=== PATIENT | male | born 2000 | race Hispanic/Latino ===

== ENCOUNTER 2024-07-17 06:43 | Emergency (ER) | payer MEDICAID ==
[~2024-07-17] VITALS: Ht 175.3 cm; Wt 54.4 kg
[2024-07-17] MEDS: LACTATED RINGERS 1000ML 1,000 ML IV ONE (07:24)
--- NOTE | 2024-07-17 07:27 | ERN ---
General Chief Complaint: Altered Mental Status Stated Complaint: AMS Time Seen by MD: 06:55 History of Present Illness Initial Comments 24-year-old male with no significant past medical history presents today with altered mental status. Patient apparently was found outside a " [employer]" store. Patient appears to be nonverbal. Allergies: Coded Allergies: No Known Drug Allergies (Unverified Allergy, Unknown, 07/17/24) Past Medical History Past Medical History: Unknown Past Surgical History: Unknown ROS Dictation Twelve point review of systems can not be done given patient's altered mental status Physical Exam Physical Exam Dictation General: Altered responds to commands Head/Face: Normocephalic, atraumatic Eyes: PERRL, ENT: oral cavity clear, Neck: Trachea midline, supple Cardiovascular: RRR, normal S1/S2 Respiratory: CTAB, no respiratory distress Abdomen: Soft, non-tender, non-distended, Skin: Warm, dry, normal turgor, no rash MS/Extremity: Pulses equal, Neuro: COAx4, GCS 15, strength 5/5 Results Laboratory and Microbiology Lab and Micro Result Laboratory Tests Test 07/17/24 07:20 07/17/24 07:49 07/17/24 10:05 07/17/24 11:19 White Blood Count 13.2 K/uL (4.8-10.8) H Red Blood Count 5.55 MIL/uL (4.50-6.20) Hemoglobin 16.0 g/dL (14.0-18.0) Hematocrit 45.9 % (42-54) Mean Corpuscular Volume 82.7 fL (79-99) Mean Corpuscular Hemoglobin 28.8 pg (27.0-33.0) Mean Corpuscular Hemoglobin Concent 34.9 g/dL (32.0-36.0) Red Cell Distribution Width 12.5 % (11.0-15.5) Platelet Count 384 K/uL (130-400) Mean Platelet Volume 9.7 fL (7.5-10.5) Immature Granulocyte % (Auto) 0.4 % (0-1) Neutrophils (%) (Auto) 83.2 % (40.0-77.0) H Lymphocytes (%) (Auto) 8.5 % (21.0-51.0) L Monocytes (%) (Auto) 7.6 % (3.0-13.0) Eosinophils (%) (Auto) 0.0 % (0.0-8.0) Basophils (%) (Auto) 0.3 % (0.0-5.0) Neutrophils # (Auto) 11.0 K/uL (1.8-7.7) H Lymphocytes # (Auto) 1.1 K/uL (1.0-4.8) Monocytes # (Auto) 1.0 K/uL (0.1-1.0) Eosinophils # (Auto) 0.00 K/uL (0.00-0.70) Basophils # (Auto) 0.04 K/uL (0.00-0.20) Absolute Immature Granulocyte (auto 0.05 K/uL (0-1) Nucleated Red Blood Cells 0.0 % (0.0-0.19) White Cell Morphology Comment See comments Sodium Level 142 mmol/L (136-145) Potassium Level 4.7 mmol/L (3.5-5.1) Chloride Level 102 mmol/L (101-111) Carbon Dioxide Level 24 mmol/L (21-32) Blood Urea Nitrogen 19 mg/dL (7-18) H Creatinine 1.7 mg/dL (0.5-1.3) H Glomerular Filtration Rate Calc 58 mL/min (>90) Random Glucose 80 mg/dL (70-105) Whole Blood Ketones Quantitative 6.5 mmol/L (0.0-0.6) H Total Calcium 9.8 mg/dL (8.5-10.1) Total Bilirubin 1.1 mg/dL (0.2-1.0) H Aspartate Amino Transf (AST/SGOT) 35 U/L (10-37) Alanine Aminotransferase (ALT/SGPT) 25 U/L (12-78) Alkaline Phosphatase 94 U/L (50-136) Total Creatine Kinase 595 U/L (21-232) *H 536 U/L (21-232) *H Total Protein 7.6 g/dL (6.0-8.3) Albumin 4.3 g/dL (3.5-5.0) Lipase 17 U/L (16-77) Urine Color YELLOW (YELLOW) Urine Appearance CLEAR (CLEAR) Urine pH 6.0 (5.0-8.0) Urine Specific Decker 1.023 (1.001-1.031) Urine Protein 100 mg/dL (NEGATIVE) H Urine Glucose (UA) NEGATIVE mg/dL (NEGATIVE) Urine Ketones 150 mg/dL (NEGATIVE) H Urine Occult Blood +- (TRACE) (NEGATIVE) H Urine Nitrate NEGATIVE (NEGATIVE) Urine Bilirubin NEGATIVE mg/dL (NEGATIVE) Urine Urobilinogen 3 mg/dL (0.2-1.0) H Urine Leukocyte Esterase NEGATIVE Bryn/uL Urine RBC 2-5 /HPF (0-1) H Urine WBC 6-10 /HPF (0-1) H Urine Squamous Epithelial Cells RARE /HPF (0-2) Urine Bacteria FEW /HPF (None Seen) Urine Hyaline Casts 26-50 /LPF (0-1 /LPF) H Urine Granular Casts (Auto) 6-10 /LPF (None Seen) H Urine Other Casts 4 /LPF (None Seen) Urine Opiates Screen NEGATIVE (NEGATIVE) Urine Barbiturates Screen NEGATIVE (NEGATIVE) Urine Phencyclidine Screen NEGATIVE (NEGATIVE) Urine Amphetamines Screen NEGATIVE (NEGATIVE) Urine Benzodiazepines Screen NEGATIVE (NEGATIVE) Urine Cocaine Screen NEGATIVE (NEGATIVE) Urine Marijuana (THC) Screen NEGATIVE (NEGATIVE) Serum Alcohol < 3 mg/dL (0-10) MDM MDM: Differential diagnosis: Worsening psychiatric illness, Rationale: Tests considered and ordered secondary to shared decision making include: Previous outside records reviewed: Old ER visits. Risk of complication and/or morbidity or mortality of patient management: None Medications-Per medication reconciliation Need for hospitalization: Patient does meet criteria for hospitalization. Need for emergency major/minor surgery: No There are no social concerns with this patient. Prescription drug management Prescriptions will include symptomatic care Patient's prior external medical records from other ER visits were reviewed by me as indicated. Prior testing and results from previous visits were reviewed. Prior tests were taken into account with medical decision making and resource utilization, independent historian/historians were used to obtain complete medical history. I independently interpreted the test that were performed, results were reviewed by me and considered findings on radiology if ordered. Medical management and examination interpretation discussions were had by me with other qualified healthcare professionals as indicated for the patient's care. Patient will be transferred to [facility] for ongoing management of acute on chronic psychiatric illness. [facility] Orders Procedure Category Date Status Time Cbc With Differential LAB 07/17/24 Complete 06:49 Comprehensive LAB 07/17/24 Complete Metabolic Panel 06:49 Urinalysis Profile LAB 07/17/24 Complete 06:49 Lactated Ringers PHA 07/17/24 Complete 1000ml (Lactated 07:00 Lipase LAB 07/17/24 Complete 06:49 Drug Screen Urine LAB 07/17/24 Complete 06:49 Ketone Blood LAB 07/17/24 Complete Quantitative 06:49 Culture Urine MELA 07/17/24 Logged 08:18 Creatine Kinase, Total LAB 07/17/24 Complete 08:46 Alcohol, Blood LAB 07/17/24 Complete 09:53 0.9%Nacl 1000ml (Ns PHA 07/17/24 Complete 1000ml) 10:30 Creatine Kinase, Total LAB 07/17/24 Complete 11:11 Dexamethasone 4mg/Ml PHA 07/17/24 Complete 1ml Vial (Dexametha 12:00 0.9%Nacl 1000ml (Ns PHA 07/17/24 Complete 1000ml) 12:30 Current Medications Medications (Trade) Dose Ordered Sig/Kristie Route PRN Reason Start Time Stop Time Status Last Admin Dose Admin Dexamethasone Sodium Phosphate (dexaMETHasone 4MG/ML 1ML VIAL) 8 mg Q24H IV 07/17/24 12:00 07/17/24 12:01 DC Lactated Ringer's 1,000 ml @ 0 mls/hr ONCE ONCE IV 07/17/24 07:00 07/17/24 07:01 DC 07/17/24 07:24 Sodium Chloride 1,000 ml @ 0 mls/hr ONCE ONCE IV 07/17/24 10:30 07/17/24 10:31 DC 07/17/24 10:28 Sodium Chloride 1,000 ml @ 0 mls/hr ONCE ONCE IV 07/17/24 12:30 07/17/24 12:31 DC 07/17/24 13:21 Vital Signs Date Time Temp Pulse Resp B/P (MAP) Pulse Ox O2 Delivery O2 Flow Rate FiO2 07/17/24 14:27 98.4 99 16 112/60 100 Room Air* 0 07/17/24 13:23 98.4 99 16 112/60 100 Room Air* 0 07/17/24 07:09 98.4 99 16 111/67 99 Room Air* 0 07/17/24 06:51 98.4 104 16 132/73 100 Room Air* 0 07/17/24 06:45 99.0 114 16 124/70 100 Room Air 0 DX & DISP Disposition: Transfer Decision to Admit Time: 14:43 Departure Impression: Primary Impression: Psychiatric illness Condition: Stable Referrals: SELF,REFERRAL (PCP) MARK ALVARADO MD Jul 17, 2024 07:27 REJI STANFORD MD Jul 17, 2024 14:43
[2024-07-17 07:29] LABS: BASOPHILS # (AUTO) 0.04 K/uL (0.00-0.20); BASOPHILS % (AUTO) 0.3 % (0.0-5.0); HEMATOCRIT 45.9 % (42-54); IMMATURE GRANULOCYTE ABSOLUTE 0.05 K/uL (0-1); LYMPHOCYTES # (AUTO) 1.1 K/uL (1.0-4.8); LYMPHOCYTES % (AUTO) 8.5 % (21.0-51.0); MEAN CORPUSCULAR HEMOGLOBIN 28.8 pg (27.0-33.0); MEAN CORPUSCULAR HGB CONC 34.9 g/dL (32.0-36.0); MEAN CORPUSCULAR VOLUME 82.7 fL (79-99); MONOCYTES % (AUTO) 7.6 % (3.0-13.0); NEUTROPHILS % (AUTO) 83.2 % (40.0-77.0); PLATELET COUNT (AUTO) 384 K/uL (130-400); RED BLOOD CELL COUNT(AUTO) 5.55 MIL/uL (4.50-6.20); RED CELL DISTRIBUTION WIDTH 12.5 % (11.0-15.5); WHITE BLOOD COUNT (AUTO) 13.2 K/uL (4.8-10.8)
[2024-07-17 07:42] LABS: ALBUMIN 4.3 g/dL (3.5-5.0); BILIRUBIN,TOTAL 1.1 mg/dL (0.2-1.0); CREATININE 1.7 mg/dL (0.5-1.3); POTASSIUM 4.7 mmol/L (3.5-5.1); TOTAL PROTEIN, SERUM 7.6 g/dL (6.0-8.3)
[2024-07-17 08:13] LABS: APPEARANCE,URINE CLEAR (CLEAR); BILIRUBIN,URINE NEGATIVE (NEGATIVE); COLOR,URINE YELLOW (YELLOW); GLUCOSE, URINE (UA) NEGATIVE (NEGATIVE); KETONES,URINE 150 mg/dL (NEGATIVE); LEUKOCYTE ESTERASE ,URINE NEGATIVE Leu/uL (NEGATIVE); NITRATE,URINE NEGATIVE (NEGATIVE); PROTEIN,URINE 100 mg/dL (NEGATIVE); UROBILINOGEN,URINE 3 mg/dL (0.2-1.0)
[2024-07-17 08:15] LABS: ADD UA MICROSCOPIC YES
[2024-07-17 08:17] LABS: AMPHET/METH SCREEN,URINE NEGATIVE (NEGATIVE); BARBITURATE SCREEN, URINE NEGATIVE (NEGATIVE); BENZODIAZEPINES SCREEN,URINE NEGATIVE (NEGATIVE); CANNABINOID SCREEN,URINE NEGATIVE (NEGATIVE); COCAINE SCREEN,URINE NEGATIVE (NEGATIVE); OPIATE SCREEN,URINE NEGATIVE (NEGATIVE); PHENCYCLIDINE SCREEN,URINE NEGATIVE (NEGATIVE)
[2024-07-17 08:18] LABS: BACTERIA,URINE FEW /HPF (None Seen); HYALINE CASTS, URINE 26-50 /LPF (0-1 /LPF); MUCUS,URINE RARE LPF (None Seen); OTHER CASTS, URINE 4 /LPF (None Seen); SQUAMOUS EPITHELIAL CELL,UR RARE /HPF (0-2)
[2024-07-17] MEDS: 0.9%NACL 1000ML 1,000 ML IV ONE ×2 (10:28→13:21)
[2024-07-17] MEDS ORDERED: dexaMETHasone SOD PHOSPHATE 4 MG/ML 1ML VIAL IV SCH (12:00)
[2024-07-17 14:27] VITALS: BP 112/60; PULSE 99; RESP 16; TEMP 98.4; O2SAT 100
== END 2024-07-17 14:34 | disposition short-term general hospital (02) ==
LOC: EDH 06:43
DX: F99 Mental disorder, not otherwise specified (principal)
CPT/HCPCS: 99285; 96361 ×2; 96360; 82550 ×2; 80053; 80305; 83690; 85025; 87086; 82010; 36415; 81001; J7120; J7030 ×2; J1100